=== PATIENT | female | born 2000 | race Caucasian/White ===

== ENCOUNTER 2019-06-05 11:36 | Emergency (ER) | payer OTHER ==
[~2019-06-05] VITALS: Ht 160 cm; Wt 113.4 kg
[2019-06-05] MEDS ORDERED: Klonopin0.5 MG PO (13:58)
== END 2019-06-05 13:59 | disposition home or self-care (01) ==
LOC: ER 11:36
DX: T78.40XA Allergy, unspecified, initial encounter (principal); F41.9 Anxiety disorder, unspecified; I10 Essential (primary) hypertension; Z79.899 Other long term (current) drug therapy
CPT/HCPCS: 36415; 96374; 96375; 99283-25; J1100; J1200

== ENCOUNTER → 2019-11-18 | Outpatient (CLI) | payer OTHER ==
[~2019-11-18] MED LIST: Klonopin0.5 MG PO
[2019-11-20 05:07] LABS: CHLAMYDIA TRACHOMATIS, NAA Negative (Negative); NEISSERIA GONORRHOEAE, NAA Negative (Negative)
== END | disposition home or self-care (01) ==
LOC: LAB SHORT 15:50 → LAB 15:50
PROVIDERS: Family Medicine
DX: Z11.3 Encounter for screening for infections with a predominantly sexual mode of transmission (principal)
CPT/HCPCS: 87491; 87591

== ENCOUNTER 2020-05-28 18:58 | Emergency (ER) | payer OTHER ==
[~2020-05-28] VITALS: Ht 160 cm; Wt 113.4 kg
[2020-05-28] MEDS ORDERED: ZOLOFT100 M4 PO (22:01)
[2020-05-28] MEDS ORDERED: XULANE PATCH1 EAC1 TD (22:01)
[2020-05-29] MEDS ORDERED: CRUTCH2 XX (00:32)
[2020-05-29] MEDS ORDERED: IBU800 MG PO (00:33)
[2020-05-29] MEDS ORDERED: Norco 5-325 Ta1 EACH PO (00:33)
== END 2020-05-29 00:56 | disposition home or self-care (01) ==
LOC: ER 18:58
DX: S82.301A Unspecified fracture of lower end of right tibia, initial encounter for closed fracture (principal); X58.XXXA Exposure to other specified factors, initial encounter
CPT/HCPCS: 27752; 27810; 73600; 73610; 96374-59; 96375-59; 99152; 99283-25; A9270; J2405; J2704; J3010; J7030

== ENCOUNTER 2020-06-05 11:06 | Day surgery (SDC) | payer OTHER ==
[~2020-06-05] VITALS: Ht 160 cm; Wt 111.6 kg
[~2020-06-05 11:06] MED LIST changes: +CRUTCH2 XX; +IBU800 MG PO; +Norco 5-325 Ta1 EACH PO; +XULANE PATCH1 EAC1 TD; +ZOLOFT100 M4 PO
[2020-06-05] MEDS ORDERED: Aspir 8181 MG PO (12:15)
== END 2020-06-05 16:11 | disposition home or self-care (01) ==
LOC: ORSCSDS 11:06
PROVIDERS: Orthopaedic Surgery
PROC: 0QSG04Z Reposition Right Tibia with Internal Fixation Device, Open Approach (ICD-10-PCS; principal; 2020-06-05 12:15)
PROC: 0QSJ04Z Reposition Right Fibula with Internal Fixation Device, Open Approach (ICD-10-PCS; principal; 2020-06-05 12:15)
DX: S82.841A Displaced bimalleolar fracture of right lower leg, initial encounter for closed fracture (principal); S93.431A Sprain of tibiofibular ligament of right ankle, initial encounter; E66.01 Morbid (severe) obesity due to excess calories; Z68.42 Body mass index [BMI] 45.0-49.9, adult; Z79.899 Other long term (current) drug therapy; Z79.82 Long term (current) use of aspirin
CPT/HCPCS: A9270; C1713; J1100; J1885; J2250; J2405; J2704; J2795; J3010; J7120